=== PATIENT | female | born 1985 | race African-American/Black ===

== ENCOUNTER 2023-07-10 11:25 | Emergency (ER) | payer OTHER ==
[~2023-07-10] VITALS: Ht 157.5 cm; Wt 93.0 kg
[2023-07-10] MEDS ORDERED: MECLIZINE HCL 25 MG TABLET ONE (12:17)
[2023-07-10] MEDS ORDERED: IBUPROFEN 600 MG TABLET ONE (12:17)
[2023-07-10] MEDS ORDERED: MECL-159 PO (12:28)
[2023-07-10] MEDS ORDERED: IBUPROFEN 600 MG TABLET PO ONE (12:30)
[2023-07-10] MEDS ORDERED: MECLIZINE HCL 25 MG TABLET PO ONE (12:30)
[2023-07-10 12:38] VITALS: BP 121/68; TEMP 98.4; O2SAT 100
== END 2023-07-10 12:38 | disposition home or self-care (01) ==
LOC: ER 11:25
DX: R42 Dizziness and giddiness (principal); Z98.890 Other specified postprocedural states
CPT/HCPCS: 99283; 82962; J8597